=== PATIENT | male | born 1965 | race Caucasian/White ===

== ENCOUNTER 2016-12-14 19:04 | Emergency (ER) | payer BC ==
[~2016-12-14] VITALS: Ht 193 cm; Wt 95.3 kg
[2016-12-14 19:14] VITALS: BP 144/105
[2016-12-14] MEDS ORDERED: TDAP [DIPH/PERTUSSIS/TET] 0.5 ML VIAL IM ONE ×2 (19:24→19:30)
== END 2016-12-14 19:54 | disposition home or self-care (01) ==
LOC: ER 19:06
DX: S91.331A Puncture wound without foreign body, right foot, initial encounter (principal); W22.8XXA Striking against or struck by other objects, initial encounter; Y93.89 Activity, other specified; Y92.89 Other specified places as the place of occurrence of the external cause; Y99.8 Other external cause status
CPT/HCPCS: 90715; A4606; A6402; Z7610